=== PATIENT | male | born 1985 | race Two or more races ===

== ENCOUNTER 2017-11-02 11:17 | Observation (INO) | payer OTHER ==
[2017-11-02] MEDS ORDERED: IV RINGERS,LACTATED 1000ML 1,000 ML IV ×2 (12:49→13:08)
[2017-11-02] MEDS ORDERED: ONDANSETRON PF 4 MG/2 ML VIAL. IV ×4 (13:00→14:15)
[2017-11-02] MEDS ORDERED: MORPHINE SULFATE 2 MG/ML DISP.SYRIN. IV ×2 (13:00→13:15)
[2017-11-02] MEDS ORDERED: LIDOCAINE 1% PF 2 ML VIAL. ID ×2 (13:00→13:15)
[2017-11-02] MEDS ORDERED: fentaNYL PF VIAL 100 MCG/2 ML VIAL IV ×6 (13:00→14:15)
[2017-11-02] MEDS ORDERED: PROCHLORPERAZINE 10 MG/2 ML VIAL. IV ×2 (13:00→13:15)
[2017-11-02] MEDS ORDERED: HYDROmorphone 2 MG/ML VIAL IV ×2 (13:00→13:15)
[2017-11-02] MEDS ORDERED: ACETAMINOPHEN 500 MG TABLET PO (13:15)
[2017-11-02] MEDS: IV NORMAL SALINE 1000ML BAG 1,000 ML IV (13:25)
[2017-11-02] MEDS: IV RINGERS,LACTATED 1000ML 1,000 ML IV ×2 (14:09→22:09)
[2017-11-02] MEDS: FAMOTIDINE 20 MG TABLET. PO (14:15)
[2017-11-02] MEDS ORDERED: MIDAZOLAM HCL/PF 2 MG/2 ML VIAL. IV (14:15)
[2017-11-02] MEDS ORDERED: LIDOCAINE 1%/EPI 1:100,000 20 ML VIAL. (15:00)
[2017-11-02] MEDS ORDERED: MUPIROCIN 2 % NASAL OINTMENT 22GM TUBE. NS (15:00)
[2017-11-02] MEDS ORDERED: SUCCINYLCHOLINE 200 MG/10 ML VIAL. (15:20)
[2017-11-02] MEDS ORDERED: ONDANSETRON PF 4 MG/2 ML VIAL. (15:21)
[2017-11-02] MEDS ORDERED: fentaNYL PF VIAL 100 MCG/2 ML VIAL ×4 (15:21→19:04)
[2017-11-02] MEDS ORDERED: DEXAMETHASONE SOD PHOS 20 MG/5 ML VIAL. (15:21)
[2017-11-02] MEDS ORDERED: PROPOFOL 20 ML IV ×2 (15:21→18:00)
[2017-11-02] MEDS ORDERED: LIDOCAINE 1% PF 5 ML VIAL. (17:35)
[2017-11-02] MEDS ORDERED: DESFLURANE 16 TO 30 MINUTES. IH (17:35)
[2017-11-02] MEDS: OXYMETAZOLINE 0.05% NASAL SPRAY 30ML BOTTLE. NS (17:36)
[2017-11-02] MEDS: EPINEPHrine NASAL 30 MG/30 ML BOTTLE (18:08)
[2017-11-02] MEDS ORDERED: LABETALOL 20 MG/4 ML DISP.SYRIN. (18:16)
[2017-11-02] MEDS: SURGICEL HEMOSTAT 4X8 EACH. (18:26)
[2017-11-02] MEDS: fentaNYL PF VIAL 100 MCG/2 ML VIAL IV ×4 (18:58→19:27)
[2017-11-02] MEDS ORDERED: OXYMETAZOLINE 0.05% NASAL SPRAY 30ML BOTTLE. NS (19:00)
[2017-11-02] MEDS: MORPHINE SULFATE 2 MG/ML DISP.SYRIN. IV (19:16)
[2017-11-02] MEDS ORDERED: HYDROmorphone 2 MG/ML VIAL (19:28)
[2017-11-02] MEDS: HYDROmorphone 2 MG/ML VIAL IV ×4 (19:38→20:09)
[2017-11-02 20:45] LABS: BASO % 0 % (0-3); EOS % 0 % (0-3); HEMATOCRIT 36.4 % (39.0-53.0); HEMOGLOBIN 11.4 g/dL (13.0-17.5); LYMPH # 0.5 x10^3/uL (1.0-4.8); LYMPH % 4 % (24-48); MEAN CORPUSCULAR HEMOGLOBIN 26 pg (25-35); MEAN CORPUSCULAR HGB CONC 31 g/dL (31-37); MEAN CORPUSCULAR VOLUME 83 fL (79-100); MONO # 0.2 x10^3/uL (0.0-1.1); MONO % 1 % (0-9); NEUT # 13.1 x10^3uL (1.8-7.7); NEUT % 95 % (31-73); PLATELET COUNT 250 x10^3/uL (140-400); RED BLOOD COUNT 4.41 x10^6/uL (4.30-5.70); WHITE BLOOD COUNT 13.8 x10^3/uL (4.0-11.0)
[2017-11-02 20:47] LABS: ADD MAN DIFF? YES
[2017-11-02] MEDS: oxyCODONE/APAP 5/325 1 TAB TABLET PO ×2 (20:51→23:48)
[2017-11-02] MEDS: SODIUM CHLORIDE 0.65% NASAL SPRAY 45ML BOTTLE. NS (21:00)
[2017-11-02] MEDS: MUPIROCIN 2 % NASAL OINTMENT 22GM TUBE. NS (21:00)
[2017-11-02 21:09] LABS: % BANDS 14 % (0-9); % LYMPHS 5 % (24-48); % SEGS 81 % (35-66); PLT ESTIMATE ADEQUATE (ADEQUATE)
[2017-11-02 21:10] LABS: ANISOCYTOSIS SLIGHT
[2017-11-03] MEDS: IV NORMAL SALINE 1000ML BAG 1,000 ML IV ×2 (05:00→05:47)
[2017-11-03] MEDS: MORPHINE SULFATE 4 MG/ML DISP.SYRIN. IV (08:01)
[2017-11-03] MEDS: SODIUM CHLORIDE 0.65% NASAL SPRAY 45ML BOTTLE. NS ×2 (08:01→13:00)
[2017-11-03] MEDS: MUPIROCIN 2 % NASAL OINTMENT 22GM TUBE. NS (08:01)
[2017-11-03] MEDS: oxyCODONE/APAP 5/325 1 TAB TABLET PO (14:25)
== END 2017-11-03 14:30 | disposition home or self-care (01) ==
LOC: ER 11:17 → 4 NORTH 12:46
DX: R04.0 Epistaxis (principal); Z90.49 Acquired absence of other specified parts of digestive tract
CPT/HCPCS: 30905; 36415; 85007; 85025; 96374; 99285; G0378; G0379; J0330; J0690; J1100; J1170; J2270; J2405; J2704; J3010; J3490; J7030; J7120